=== PATIENT | female | born 1945 | race Caucasian/White ===

== ENCOUNTER → 2018-12-29 | Outpatient (CLI) | payer MEDICARE, OTHER ==
[~2018-12-29] MED LIST: REGADENOSON 0.4 MG/5 ML DISP.SYRIN. IV ONE
--- NOTE | 2018-12-29 16:41 | PCVCIMAG ---
APPROVED REPORT Study performed: 12/29/2018 08:17:29 EXAM: Comprehensive 2D, Doppler, and color-flow Echocardiogram Patient Location: Echo lab Room #: 2Status: routine BSA: 1.87 HR: 65 bpmBP: 136/76 mmHg Rhythm: NSR Other Information Study Quality: Adequate Risk Factors: Cardiac Risk Factors: HTN Indications Dyspnea CAD Fatigue Elevated coronary Ca score 2D Dimensions IVSd: 6.36 (7-11mm)LVOT Diam: 22.97 (18-24mm) LVDd: 52.01 mm PWd: 10.60 (7-11mm)Ascending Ao: 30.04 (22-36mm) LVDs: 27.55 (25-40mm) Left Atrium: 38.63 (27-40mm) Aortic Root: 24.49 mm LV Single Plane 4CH: 59.74 % LV Single Plane 2CH: 61.62 % Biplane EF: 61.2 % Volumes Left Atrial Volume (Systole) Single Plane 4CH: 40.50 mLSingle Plane 2CH: 61.45 mL Biplane LA Volume: 51.00 mLLA ESV Index: 27.00 mL/m2 Aortic Valve AoV Peak Augustine.: 1.41 m/s AO Peak Gr.: 7.96 mmHgLVOT Max P.46 mmHg LVOT Max V: 1.06 m/s AMADOU Vmax: 3.10 cm2 Mitral Valve E/A Ratio: 1.1 MV Decel. Time: 173.41 ms MV E Max Augustine.: 0.71 m/s MV A Augustine.: 0.63 m/s MV Max Augustine.: 5.19 m/s MV Mean Augustine.: 4.38 m/s TDI E/Lateral E': 7.89E/Medial E': 8.88 Medial E' Augustine.: 0.08 m/s Lateral E' Augustine.: 0.09 m/s Pulmonary Valve PV Peak Augustine.: 0.73 m/sPV Peak Gr.: 2.17 mmHg Pulmonary Vein P Vein S: 0.82 m/sP Vein A: 0.30 m/s P Vein D: 0.44 m/sP Vein A Dur.: 96.9 msec P Vein S/D Ratio: 1.86 Tricuspid Valve TR Peak Augustine.: 2.46 m/s TR Peak Gr.: 24.19 mmHg TV Vmax: 0.61 m/sPA Pressure: 31.00 mmHg Left Ventricle The left ventricle is normal size. There is normal LV segmental wall motion. There is normal left ventricular wall thickness. Left ventricular systolic function is normal. The left ventricular ejection fraction is within the normal range. LVEF is 60-65%. The left ventricular diastolic function is normal. Right Ventricle The right ventricle is normal size. The right ventricular systolic function is normal. Atria The left atrium size is normal. The right atrium size is normal. Aortic Valve Aortic valve is trileaflet. The aortic valve is normal in structure and function. No aortic regurgitation is present. There is no aortic valvular stenosis. Mitral Valve The mitral valve is normal in structure. Moderate mitral regurgitation. No evidence of mitral valve stenosis. Tricuspid Valve The tricuspid valve is normal in structure. Mild to moderate tricuspid regurgitation with a PA pressure of 31 mmHg. Mild pulmonary hypertension. Pulmonic Valve The pulmonary valve is normal in structure. There is no pulmonic valvular regurgitation. Great Vessels The aortic root is normal in size. The ascending aorta is normal in size. Aortic arch is normal in caliber. IVC is normal in size and collapses >50% with inspiration. Pericardium There is no pericardial effusion. There is no pleural effusion. <Conclusion> The left ventricle is normal size. LVEF is 60-65%. Aortic valve is trileaflet. The aortic valve is normal in structure and function. The mitral valve is normal in structure. Moderate mitral regurgitation. The tricuspid valve is normal in structure. Mild to moderate tricuspid regurgitation with a PA pressure of 31 mmHg. Mild pulmonary hypertension. The pulmonary valve is normal in structure. There is no pericardial effusion. There is no pleural effusion.
--- NOTE | 2018-12-30 11:53 | PCVCIMAG ---
APPROVED REPORT Imaging Protocol: Rest Tc-99m/Stress Tc-99m 1 day Study performed: 12/29/2018 09:48:37 Indication: Dyspnea Patient Location: Out-Patient Stress Nurse: Shahnaz Cr RN, JILLIAN Steele Tech:Josesito Cope NMVALDOB Ht: 5 ft 4 in Wt: 166 lbs BSA: 1.81 m2 HR: 69 bpm BP: 158/77 mmHg BMI: 28.4 Rhythm: Sinus Rhythm, Non specific ST abnormality Medical History Medical History: Age, HTN, Dyspnea, Obesity, High CA Score Medications: Buspar, Hyzaar, Crestor Allergies: Codeine, Iodine, Sulfa Exercise History: Sedentary Physical Disabilities: Peripheral neuropathy Resting Data Rest SPECT myocardial perfusion imaging was performed in supine position 45 minutes following the intravenous injection of 12 mCi of Tc-99m Sestamibi. Time of rest injection: 919 Date: 12/29/2018 Administration Route: IV Administration Site: Right Arm Pharmacologic Stress Pharmacologic stress test was performed by injecting Regadenoson 0.4 mg IV push over 10-15 seconds immediately followed by the intravenous injection of 35.8 mCi of Tc-99m Sestamibi. Time of stress injection: 0 Date: 12/29/2018 Administration Route: IV Administration Site: Right Arm Gated Stress SPECT was performed 45 minutes after stress injection. The images were gated to evaluate regional wall motion and calculate left ventricular ejection fraction. Stress Test Details Stress Test: Pharmacologic stress testing performed using 0.4 mg of regadenoson per 5 mL given IV over 10 seconds. Reason for pharmacologic stress test: Shoulder pain, Peripheral Neuropathy. HRMax Heart Rate (APMHR): 149 bpm Resting HR: 69 bpmTarget HR (85% APMHR): 126 bpm Max HR Achieved: 88 bpm % of APMHR: 59 Recovery HR: 83 bpm BP Resting BP: 158/77 mmHg Max BP: 143/80 mmHg Recovery BP: 141/71 mmHg ECG Resting ECG: Sinus Rhythm, nonspecific ST-T abnormalities Stress ECG: Sinus Rhythm, nonspecific ST-T abnormalities Arrhythmia: PVC's Recovery ECG: Sinus Rhythm, nonspecific ST-T abnormalities Clinical Reason for Termination: Completed protocol Stress Symptoms: Dyspnea Symptoms resolved with caffeine. Stress ECG Conclusion 1. Adequate response to intravenous Lexiscan 2. Inadequate heart rate response for ECG diagnosis Study Data Post stress, the left ventricular ejection was 74%.. SSS: 0 SRS: 1 SDS: 0 TID = 0.82. Perfusion There is a small area of moderately reduced uptake in the apical segment of the anterior wall which is seen on the stress images as well as the resting images. This area thickens and moves normally and is most consistent with attenuation artifact. Wall Motion Normal left ventricular wall motion. Nuclear Conclusion ECG Findings: non-diagnostic Clinical Findings: negative for ischemia Nuclear Findings: negative for ischemia Exercise Capacity: not assessed Left Ventricular Function: normal 1. Low risk study 2. Post stress left ventricular ejection fraction 74% without wall motion abnormalities Interpreted by: Padma Lucero MD Electronically Approved: 12/30/2018 11:52:37 <Conclusion> 1. Adequate response to intravenous Lexiscan 2. Inadequate heart rate response for ECG diagnosis
== END | disposition home or self-care (01) ==
LOC: PCVCIMAG 07:57
PROVIDERS: ATTEND Internal Medicine
DX: I08.1 Rheumatic disorders of both mitral and tricuspid valves (principal); I25.10 Atherosclerotic heart disease of native coronary artery without angina pectoris; R53.83 Other fatigue; R93.1 Abnormal findings on diagnostic imaging of heart and coronary circulation; R06.00 Dyspnea, unspecified
CPT/HCPCS: 78452; 93017; 93306; A9500; J2785